=== PATIENT | female | born 1990 | race Caucasian/White ===

== ENCOUNTER 2016-07-05 09:31 | Emergency (ER) | payer OTHER ==
[2016-07-05 09:53] VITALS: TEMP 98.1
--- NOTE | 2016-07-05 10:25 | ED ---
Female Urogenital HPI - General Chief complaint: Urogenital Stated complaint: Abd.pain Time Seen by Provider: 07/05/16 10:13 Source: patient, RN notes reviewed Mode of arrival: ambulatory Limitations: no limitations - History of Present Illness Initial comments: 25-year-old female presents to the emergency department with a chief complaint of rash to the vaginal area. Patient states that ever since she had stitches after having her child she continues to have irritation to her perineum. Patient states over the last 2 months it comes and goes. Patient states now she 's noticed the patti area has returned she has pain at the end of urinating as well as it stings when she touches the area. Patient states she is also noticed some increased constipation over the last few days patient states she did take Colace which did help.. Patient states that she called her [facility] [employer] [facility] [employer] and they referred her here she was unable to be seen by them. Patient states she hasn't had any fever or chills with this. Patient denies any nausea or vomiting. Patient states that she was concerned due to her continued symptoms that she thought that she should be evaluated. Patient denies any recent fever, chills, shortness of breath, chest pain, back pain, abdominal pain, nausea vomiting, numbness or tingling, dysuria or hematuria, diarrhea, headaches or visual changes, or any other current symptoms.. Last Menstrual Period: 06/28/16 - Related Data Home Medications Medication Instructions Recorded Confirmed Albuterol Sulfate [Proair Hfa] 2 puff INHALATION RT-Q6H PRN 07/05/16 07/05/16 Docusate [Colace] 100 mg PO DAILY PRN 07/05/16 07/05/16 Methylphenidate HCl [Concerta] 36 mg PO DAILY 07/05/16 07/05/16 Multivitamins, Thera [Multivitamin] 1 tab PO DAILY 07/05/16 07/05/16 Norgestimate-Ethinyl Estradiol 1 tab PO DAILY 07/05/16 07/05/16 [Tri-Sprintec Tablet] Allergies Allergy/AdvReac Type Severity Reaction Status Date / Time No Known Allergies Allergy Verified 07/05/16 10:39 Review of Systems ROS Statement: Those systems with pertinent positive or pertinent negative responses have been documented in the HPI. ROS Other: All systems not noted in ROS Statement are negative. Past Medical History Past Medical History: No Reported History Additional Past Medical History / Comment(s): SVT, anxiety History of Any Multi-Drug Resistant Organisms: None Reported Past Surgical History: No Surgical Hx Reported Past Anesthesia/Blood Transfusion Reactions: No Reported Reaction Past Psychological History: No Psychological Hx Reported Smoking Status: Never smoker Past Alcohol Use History: None Reported Past Drug Use History: None Reported - Past Family History Father History Unknown: Yes Family Medical History: No Reported History General Exam - General Exam Comments Initial Comments: General: The patient is awake and alert, in no distress, and does not appear acutely ill. Eye: Pupils are equal, round. Ears, nose, mouth and throat: There are moist mucous membranes. Neck: The neck is supple, there is no tenderness . Cardiovascular: There is a regular rate and rhythm. No murmur, rub or gallop is appreciated. Respiratory: Lungs are clear to auscultation, respirations are non-labored, breath sounds are equal. No wheezes, stridor, rales, or rhonchi. Gastrointestinal: Soft, non-distended, non-tender abdomen without masses or organomegaly noted. There is no rebound or guarding present. No CVA tenderness. Bowel sounds are unremarkable. Female urogenital: Patient does appear to have an area of redness to it. He'll area that does appear to be cured he did there is some white discharge noted from the vaginal canal. Patient does appear to have tenderness in the left adnexa on bimanual exam. Back: There is no tenderness to palpation in the midline. There is no obvious deformity. No rashes noted. Musculoskeletal: Normal ROM, no tenderness, There is no pedal edema. There is no calf tenderness or swelling. Sensation intact. Pulses equal bilaterally 2+. Neurological: CN II-XII intact, There are no obvious motor or sensory deficits. Coordination appears grossly intact. Speech is normal. Skin: Skin is warm and dry and no rashes or lesions are noted. Psychiatric: Cooperative, appropriate mood & affect, normal judgment. Limitations: no limitations Course Vital Signs 07/05/16 07/05/16 07/05/16 09:49 10:53 12:55 Temperature 98.1 F Pulse Rate 122 H 94 92 Respiratory 20 18 18 Rate Blood Pressure 134/84 125/59 125/72 O2 Sat by Pulse 99 96 98 Oximetry Medical Decision Making - Medical Decision Making 25-year-old female presents for what appears to be peritoneal irritation. On bimanual exam patient does appear to have pain and left adnexa will do a transvaginal ultrasound. Patient's urinalysis does not show any signs of UTI. This ultrasound and x-rays are reviewed and negative. Patient's urinalysis does not show any signs of infection either. At this time we discussed that the patient should put a barrier type pain over the area of irritation in the vaginal canal. We discussed follow-up will be. I and return parameters. Patient stated that she understood and all this time patient will be discharged home. - Lab Data Lab Results 07/05/16 07/05/16 Range/Units 10:35 10:35 Urine Color Yellow Urine Appearance Clear (Clear) Urine pH 6.5 (5.0-8.0) Ur Specific [place] 1.017 (1.001-1.035) Urine Protein Negative (Negative) Urine Glucose (UA) Negative (Negative) Urine Ketones Negative (Negative) Urine Blood Negative (Negative) Urine Nitrate Negative (Negative) Urine Bilirubin Negative (Negative) Urine Urobilinogen <2.0 (<2.0) mg/dL Ur Leukocyte Esterase Small H (Negative) Urine WBC 1 (0-5) /hpf Ur Squamous Epith Cells 2 (0-4) /hpf Urine Bacteria Rare H (None) /hpf Urine Mucus Rare H (None) /hpf Urine HCG, Qual Not Detected (Not Detectd) - Radiology Data Radiology results: report reviewed, image reviewed Disposition Clinical Impression: Pelvic pain, Vaginal irritation, Constipation Disposition: HOME SELF-CARE Condition: Stable Instructions: Constipation (ED) Additional Instructions: Please use medication as discussed. Please follow up with family doctor if symptoms have not improved over the next two days. Please return to the emergency room if your symptoms increase or worsen or for any other concerns. Referrals: Marimar Anaya DO [Primary Care Provider] - 1-2 days Time of Disposition: 13:23
[2016-07-05 11:04] LABS: Appearance,Urine Clear (Clear); Bacteria,Urine Rare /hpf; Bilirubin,Urine Negative (Negative); Glucose,Urine (UA) Negative (Negative); Ketones,Urine Negative (Negative); Leukocyte Esterase,Urine Small (Negative); Mucus,Urine Rare /hpf; Nitrite,Urine Negative (Negative); PH, Urine 6.5 (5.0-8.0); Particle Count 4880; Protein,Urine Negative (Negative); Specific Gravity,Urine 1.017 (1.001-1.035); Squamous Epithelial Cell,Urine 2 /hpf (0-4); UA Billing (MACRO vs. MICRO) MICRO; Urobilinogen,Urine <2.0 mg/dL (<2.0); WBC,Urine 1 /hpf (0-5)
--- NOTE | 2016-07-05 11:40 | XR ---
EXAMINATION TYPE: XR abdomen 2V DATE OF EXAM: 07/05/2016 11:28 AM COMPARISON: NONE HISTORY: Pain TECHNIQUE: Single supine KUB image of the abdomen is obtained FINDINGS: Small bowel demonstrates no evidence for dilatation or air fluid levels. Gas and fecal material is seen in non-distended colon. No convincing evidence for pneumoperitoneum. No unusual calcifications. The lung bases are clear. The osseous structures are intact. IMPRESSION: 1. Overall nonobstructive bowel gas pattern.
--- NOTE | 2016-07-05 13:09 | US ---
EXAMINATION TYPE: US transvaginal DATE OF EXAM: 07/05/2016 12:20 PM COMPARISON: NONE CLINICAL HISTORY: LLQ tenderness TECHNIQUE: Transvaginal (TV) Date of LMP: 06/28/16 EXAM MEASUREMENTS: Uterus: 8.1 x 3.1 x 3.9 cm Endometrial Stripe: 0.3 cm Right Ovary: 3.0 x 2.0 x 1.8 cm Left Ovary: 2.3 x 1.5 x 1.5 cm Endovaginal pelvic ultrasound scanning performed. 1. Uterus: Anteverted 2. Endometrium: appears somewhat thicker in endocervical canal 3. Right Ovary: Changes associated cyst measuring approximately 1 x 1.8 cm 4. Left Ovary: wnl Spectral, color and waveform doppler imaging shows good arterial and venous flow within the ovaries ; there is no evidence for ovarian torsion. 5. Bilateral Adnexa: wnl 6. Posterior cul-de-sac: wnl Grayscale, color Doppler, spectral Doppler imaging performed of the ovaries. Vascular waveforms are n oted bilaterally. IMPRESSION: No significant abnormalities evident, follow-up as indicated.
[2016-07-05 13:31] VITALS: BP 129/75; PULSE 100; RESP 16
== END 2016-07-05 13:31 | disposition home or self-care (01) ==
LOC: EC 09:31
DX: R10.2 Pelvic and perineal pain (principal); N89.8 Other specified noninflammatory disorders of vagina; K59.00 Constipation, unspecified; Z79.899 Other long term (current) drug therapy; Z79.3 Long term (current) use of hormonal contraceptives
CPT/HCPCS: 74020; 76830; 81001; 81025; 87086; 93975; 99284

== ENCOUNTER 2020-06-17 10:42 | Outpatient (CLI) | payer OTHER ==
[2020-06-17 11:41] LABS: ALT 14 U/L (4-34); AST 23 U/L (14-36); African American GFR (CKD) >90 (>60 ml/min/1.73 sqM); Blood Urea Nitrogen 4 mg/dL (7-17); LDH 380 U/L (313-618); Non-African American GFR(CKD) >90 (>60 ml/min/1.73 sqM)
[2020-06-17 11:47] LABS: Creatinine,Urine Random 69.3 mg/dL; Protein/Creatinine Ratio,Urine 0.202
[2020-06-17 11:48] LABS: Appearance,Urine Clear (Clear); Color,Urine Yellow; Glucose,Urine (UA) Negative (Negative); Protein,Urine Negative (Negative); Specific Gravity,Urine 1.005 (1.001-1.035)
[2020-06-17 11:49] LABS: Anisocytosis Slight; Basophils % (A) 1 %; Bilirubin,Urine Negative (Negative); Blood,Urine Negative (Negative); Eosinophils # (A) 0.1 k/uL (0-0.7); Eosinophils % (A) 2 %; HCT 35.4 % (34.0-46.0); HGB 11.8 gm/dL (11.4-16.0); Hypochromasia Moderate; Ketones,Urine Negative (Negative); Leukocyte Esterase,Urine Small (Negative); Lymphocytes % (A) 12 %; MCH 28.9 pg (25.0-35.0); MCHC 33.3 g/dL (31.0-37.0); MCV 86.7 fL (80.0-100.0); Mean Platelet Volume 7.4; Monocytes # (A) 0.3 k/uL (0-1.0); Monocytes % (A) 4 %; Neutrophils # (A) 6.3 k/uL (1.3-7.7); Neutrophils % (A) 80 %; Nitrite,Urine Negative (Negative); Platelet Count 251 k/uL (150-450); Poikilocytosis Moderate; RBC 4.09 m/uL (3.80-5.40); RDW 16.5 % (11.5-15.5); Urobilinogen,Urine <2.0 mg/dL (<2.0); WBC 7.8 k/uL (3.8-10.6)
[2020-06-17 11:53] LABS: Bacteria,Urine Occasional /hpf; Mucus,Urine Rare /hpf; RBC,Urine 1 /hpf (0-5); Squamous Epithelial Cell,Urine 4 /hpf (0-4); WBC,Urine 1 /hpf (0-5)
[2020-06-17] MEDS ORDERED: LABETALOL 200 MG TAB PO STA (11:56)
[2020-06-17] MEDS ORDERED: BETAMET ACET-BETAMETH SOD PHOS 6 MG/ML MDV IM SCH (12:00)
[2020-06-17 12:06] VITALS: RESP 18; TEMP 97.5
[2020-06-17 13:39] VITALS: BP 141/91; PULSE 100
--- NOTE | 2020-06-30 18:42 | P.MSEPDOC ---
Presenting Problems - Arrival Data Date of Arrival on Unit: 06/17/20 Time of Arrival on Unit: 10:42 Mode of Transport: Ambulatory - Complaint OB-Reason for Admission/Chief Complaint: PIH Comment: pt came over to triage from office to get PIH workup Medical History - Information : 2 Para: 1 Term: 1 : 0 Abortions: Spontaneous or Elective: 0 Number of Living Children: 1 - Gestational Age Gestational Age by DANISHA (wks/days): 35 Weeks and 6 Days - History Comment: PIH Review of Systems - Review of Systems Constitutional: No problems Breast: No problems ENT: No problems Cardiovascular: No problems Respiratory: No problems Gastrointestinal: No problems Genitourinary: No problems Musculoskeletal: No problems Neurological: No problems Skin: No problems Vital Signs - Temperature Temperature: 97.5 F Temperature Source: Temporal Artery Scan - Pulse Right Brachial Pulse Rate: 100 Pulse Assessment Method: Automatic Cuff - Respirations Respiratory Rate: 18 Oxygen Delivery Method: Room Air - Blood Pressure Right Arm Blood Pressure: 141/91 Blood Pressure Mean: 107 Blood Pressure Source: Automatic Cuff Medical Screen Scoring (Pre) - Cervical Exam Dilation: Exam Deferred Effacement: Exam Deferred Membranes: Intact - Uterine Contractions Frequency: < 36 weeks = 6 Duration: N/A Intensity: N/A - Maternal Vital Signs Maternal Temperature: N/A Maternal Blood Pressure: Systolic >139 = 2 Signs of Preeclampsia: Visual Disturbance = 1 Maternal Respirations: N/A - Maternal Trauma Maternal Trauma: N/A - Assessment - Baby A Baseline FHR: 140 Heart Rate - NICHD Category: Category I (Normal) = 0 NST: Reactive Position: N/A Station: N/A - Total Score - Baby A Total Score - Baby A: 9 - Total Score - Baby B Total Score - Baby B: 9 - Total Score - Baby C Total Score - Baby C: 9 - Level of Risk - Baby A Level of Risk - Baby A: Medium (6-9) - Level of Risk - Baby B Level of Risk - Baby B: Medium (6-9) - Level of Risk - Baby C Level of Risk - Baby C: Medium (6-9) Physician Notification (Pre) - Physician Notified Physician Notified Date: 06/17/20 Physician Notified Time: 11:55 New Order Received: Yes - Notification Comment Comment: give 200 mg labatelol po and recheck bp in half hour, and betamethasone injection, will call with results Medical Screen Scoring (Post) - Cervical Exam Dilation: 1-3 cm = 1 Effacement: Exam Deferred Membranes: Intact - Uterine Contractions Frequency: < 36 weeks = 6 Duration: N/A Intensity: N/A - Maternal Vital Signs Maternal Temperature: N/A Maternal Blood Pressure: Systolic >139 = 2 Signs of Preeclampsia: N/A Maternal Respirations: N/A - Pain Assessment Pain Location and Character: Pelvic Pain Scale Used: Numeric (1 - 10) Pain Intensity: 7 Pain Description: *Acute, Pressure Pain Frequency: Intermittent Pain Duration: 30 Pain Duration Units: Minutes Pain Behavior: Vocalization Pain Aggravating Factors: Contractions - Maternal Trauma Maternal Trauma: N/A - Assessment - Baby A Heart Rate: 130 Heart Rate - NICHD Category: Category I (Normal) = 0 NST: Reactive Position: N/A Station: N/A - Total Score Total Score - Baby A: 9 Total Score - Baby B: 9 Total Score - Baby C: 9 - Post Treatment Level of Risk Post Treatment Level of Risk - Baby A: Medium (6-9) Post Treatment Level of Risk - Baby B: Medium (6-9) Post Treatment Level of Risk - Baby C: Medium (6-9) Physician Notification (Post) - Physician Notified Physician Notified Date: 06/17/20 Physician Notified Time: 13:05 Physician/Practitioner Notified:: Efraín Spoke With: Efraín New Order Received: Yes - Notification Comment Comment: Dr. Kenny notified of pt's recent bp's after labatelol po given, b etamethasone given IM, cervical exam is no different than in the office, pt is to return tomorrow for 2nd dose of betamathasone and bp check, she is being sent home with labatelol 200 mg bid Disposition - Disposition OB Disposition: Triage, Discharge to home, Written follow up instructions reviewed Discharge Date: 06/17/20 Discharge Time: 13:23 I agree with the RN Medical Screening Exam: Yes Case reviewed; plan agreed upon as documented in EMR&OBIX.: Yes Diagnosis: gestational hypertension
== END 2020-06-17 13:23 | disposition home or self-care (01) ==
LOC: FBPOP 10:42
PROVIDERS: ATTEND Obstetrics & Gynecology
DX: O13.3 Gestational [pregnancy-induced] hypertension without significant proteinuria, third trimester (principal); Z3A.35 35 weeks gestation of pregnancy
CPT/HCPCS: 59025; 96372; 82570; 84156; 82565; 83615; 84450; 84460; 84520; 84550; 85025; 81001; J0702; 99215

== ENCOUNTER 2020-06-17 20:00 | Outpatient (CLI) | payer OTHER ==
[2020-06-17 20:26] VITALS: BP 143/95; RESP 16
[2020-06-17 22:56] VITALS: PULSE 116; TEMP 97.2
--- NOTE | 2020-06-27 10:09 | P.MSEPDOC ---
Presenting Problems - Arrival Data Date of Arrival on Unit: 06/17/20 Time of Arrival on Unit: 20:00 Mode of Transport: Ambulatory - Complaint OB-Reason for Admission/Chief Complaint: Possible Onset of Labor Comment: Pt states MORA that did not resolve with tylenol, 12/22, pt took tylenol at. 1830. Pt states contractions have inceased since being in triage this am for PIH workup. Medical History - Information : 2 Para: 1 Term: 1 : 0 Abortions: Spontaneous or Elective: 0 Number of Living Children: 1 - Gestational Age Gestational Age by DANISHA (wks/days): 36 Weeks and 0 Days Review of Systems - Review of Systems Constitutional: No problems Breast: No problems ENT: No problems Cardiovascular: No problems Respiratory: No problems Gastrointestinal: No problems Genitourinary: No problems Musculoskeletal: No problems Neurological: No problems Skin: No problems Vital Signs - Temperature Temperature: 97.2 F Temperature Source: Temporal Artery Scan - Pulse Right Brachial Pulse Rate: 116 Pulse Assessment Method: Automatic Cuff - Respirations Respiratory Rate: 16 Oxygen Delivery Method: Room Air O2 Sat by Pulse Oximetry: 98 - Blood Pressure Right Arm Blood Pressure: 143/95 Blood Pressure Mean: 111 Blood Pressure Source: Automatic Cuff Medical Screen Scoring (Pre) - Cervical Exam Dilation: 1-3 cm = 1 Effacement: More than 50% = 2 Membranes: Intact - Uterine Contractions Frequency: < 36 weeks = 6 Duration: > 40 seconds = 2 Intensity: N/A - Maternal Vital Signs Maternal Temperature: N/A Maternal Blood Pressure: N/A Signs of Preeclampsia: N/A Maternal Respirations: N/A - Maternal Trauma Maternal Trauma: N/A - Assessment - Baby A Baseline FHR: 135 Heart Rate - NICHD Category: Category I (Normal) = 0 NST: Reactive - Total Score - Baby A Total Score - Baby A: 11 - Total Score - Baby B Total Score - Baby B: 11 - Total Score - Baby C Total Score - Baby C: 11 - Level of Risk - Baby A Level of Risk - Baby A: High (10+) - Level of Risk - Baby B Level of Risk - Baby B: High (10+) - Level of Risk - Baby C Level of Risk - Baby C: High (10+) Physician Notification (Pre) - Physician Notified Physician Notified Date: 06/17/20 Physician Notified Time: 22:22 New Order Received: Yes - Notification Comment Comment: Pt states MORA that did not resolve with tylenol, 8/10 pain, pt took tylenol at. 1830. Pt states contractions have increased since being in triage this am for PIH workup. Reported on pt s/s, triage visit earlier today, lab. results from today, vag exam, contractions and frh not reactive at this time. Orders to. watch pt for 1-2 hours and do serial bps every 30 minutes. 2221 Pt no cervical change after one hour, bps now 128/69, orders to d/c pt home and follow up tomorrow for second celestone shot. Disposition - Disposition OB Disposition: LDRP Suite, Discharge to home Discharge Date: 06/17/20 Discharge Time: 22:25 I agree with the RN Medical Screening Exam: Yes Physician's MSE Comment: I have neither seen nor examined this patient. Case reviewed; plan agreed upon as documented in EMR&OBIX.: Yes Diagnosis: RELATED CONDITIONS, UNSPECIFIED, THIRD TRIMESTER
== END 2020-06-17 22:25 | disposition home or self-care (01) ==
LOC: FBPOP 20:00
PROVIDERS: ATTEND Obstetrics & Gynecology
DX: O26.93 Pregnancy related conditions, unspecified, third trimester (principal); Z3A.36 36 weeks gestation of pregnancy
CPT/HCPCS: 59025; 99213

== ENCOUNTER 2020-06-19 01:25 | Outpatient (CLI) | payer OTHER ==
[2020-06-19 02:17] VITALS: BP 142/85; PULSE 96; RESP 16; TEMP 97.2
--- NOTE | 2020-06-24 07:59 | P.MSEPDOC ---
Presenting Problems - Arrival Data Date of Arrival on Unit: 06/19/20 Time of Arrival on Unit: 01:25 Mode of Transport: Ambulatory - Complaint OB-Reason for Admission/Chief Complaint: Rule Out SROM Comment: Pt states SROM aroun 2330, clear fluid Medical History - Information : 2 Para: 1 Term: 1 : 0 Abortions: Spontaneous or Elective: 0 Number of Living Children: 1 - Gestational Age Gestational Age by DANISHA (wks/days): 36 Weeks and 1 Days Review of Systems - Review of Systems Constitutional: No problems Breast: No problems ENT: No problems Cardiovascular: No problems Respiratory: No problems Gastrointestinal: No problems Genitourinary: No problems Musculoskeletal: No problems Neurological: No problems Skin: No problems Vital Signs - Temperature Temperature: 97.2 F Temperature Source: Temporal Artery Scan - Pulse Right Brachial Pulse Rate: 96 Pulse Assessment Method: Automatic Cuff - Respirations Respiratory Rate: 16 Oxygen Delivery Method: Room Air O2 Sat by Pulse Oximetry: 97 - Blood Pressure Right Arm Blood Pressure: 142/85 Blood Pressure Mean: 104 Blood Pressure Source: Automatic Cuff Medical Screen Scoring (Pre) - Cervical Exam Dilation: 1-3 cm = 1 Effacement: More than 50% = 2 Membranes: Intact - Uterine Contractions Frequency: > 5 minutes apart = 1 Duration: > 40 seconds = 2 Intensity: N/A - Maternal Vital Signs Maternal Temperature: N/A Signs of Preeclampsia: N/A Maternal Respirations: N/A - Maternal Trauma Maternal Trauma: N/A - Assessment - Baby A Baseline FHR: 135 Heart Rate - NICHD Category: Category I (Normal) = 0 - Total Score - Baby A Total Score - Baby A: 6 - Total Score - Baby B Total Score - Baby B: 6 - Total Score - Baby C Total Score - Baby C: 6 - Level of Risk - Baby A Level of Risk - Baby A: Medium (6-9) - Level of Risk - Baby B Level of Risk - Baby B: Medium (6-9) - Level of Risk - Baby C Level of Risk - Baby C: Medium (6-9) Physician Notification (Pre) - Physician Notified Physician Notified Date: 06/19/20 Physician Notified Time: 02:51 - Notification Comment Comment: Reported negative amnisure, no cervical change and serial bps last pressure 117/67, pt to follow up as planned wed. Disposition - Disposition OB Disposition: Physician follow up in office, Triage Discharge Date: 06/19/20 Discharge Time: 02:53 I agree with the RN Medical Screening Exam: Yes Case reviewed; plan agreed upon as documented in EMR&OBIX.: Yes Comments: Patient was neither seen nor examined by me Diagnosis: FALSE LABOR BEFORE 37 COMPLETED WEEKS OF GEST, THIRD TRI
== END 2020-06-19 02:55 | disposition home or self-care (01) ==
LOC: FBPOP 01:25
PROVIDERS: ATTEND Obstetrics & Gynecology
DX: O47.03 False labor before 37 completed weeks of gestation, third trimester (principal); Z3A.36 36 weeks gestation of pregnancy
CPT/HCPCS: 59025; 84112; G0463; 99213

== ENCOUNTER 2020-06-26 18:38 | Outpatient (CLI) | payer OTHER ==
[2020-06-26 20:41] VITALS: RESP 16; TEMP 96.8
[2020-06-26 20:45] VITALS: BP 133/82; PULSE 80
--- NOTE | 2020-06-27 09:58 | P.MSEPDOC ---
Presenting Problems - Arrival Data Date of Arrival on Unit: 06/26/20 Time of Arrival on Unit: 18:39 Mode of Transport: Ambulatory - Complaint OB-Reason for Admission/Chief Complaint: Other Comment: large hemorrhoid causing pain. Medical History - Information : 2 Para: 1 Term: 1 : 0 Abortions: Spontaneous or Elective: 0 Number of Living Children: 1 - Gestational Age Gestational Age by DANISHA (wks/days): 37 Weeks and 1 Days - History Comment: gestational HTN Review of Systems - Review of Systems Constitutional: No problems Breast: No problems ENT: No problems Cardiovascular: No problems Respiratory: No problems Gastrointestinal: No problems Genitourinary: No problems Musculoskeletal: No problems Neurological: No problems Skin: No problems Comment: large hemorrhoid Vital Signs - Temperature Temperature: 96.8 F Temperature Source: Temporal Artery Scan - Pulse Right Sitting Pulse Rate: 80 - Respirations Respiratory Rate: 16 Oxygen Delivery Method: Room Air - Blood Pressure Right Arm Sitting Blood Pressure: 133/82 Blood Pressure Mean: 99 Blood Pressure Source: Automatic Cuff Medical Screen Scoring (Pre) - Cervical Exam Membranes: Intact - Uterine Contractions Frequency: N/A Duration: N/A - Maternal Vital Signs Maternal Temperature: N/A Maternal Blood Pressure: N/A Signs of Preeclampsia: N/A Maternal Respirations: N/A - Maternal Trauma Maternal Trauma: N/A - Assessment - Baby A Baseline FHR: 135 Heart Rate - NICHD Category: Category I (Normal) = 0 NST: Reactive - Total Score - Baby A Total Score - Baby A: 0 - Total Score - Baby B Total Score - Baby B: 0 - Total Score - Baby C Total Score - Baby C: 0 - Level of Risk - Baby A Level of Risk - Baby A: Low (0-5) - Level of Risk - Baby B Level of Risk - Baby B: Low (0-5) - Level of Risk - Baby C Level of Risk - Baby C: Low (0-5) Physician Notification (Pre) - Physician Notified Physician Notified Date: 06/26/20 Physician Notified Time: 19:21 New Order Received: Yes - Notification Comment Comment: pt may be d/c to ER once the NST is reactive. Medical Screen Scoring (Post) - Cervical Exam Dilation: Exam Deferred - Uterine Contractions Frequency: N/A - Maternal Vital Signs Maternal Temperature: N/A Maternal Respirations: N/A - Maternal Trauma Maternal Trauma: N/A - Assessment - Baby A Heart Rate: 125 - Total Score Total Score - Baby A: 0 Total Score - Baby B: 0 Total Score - Baby C: 0 - Post Treatment Level of Risk Post Treatment Level of Risk - Baby A: Low (0-5) Post Treatment Level of Risk - Baby B: Low (0-5) Post Treatment Level of Risk - Baby C: Low (0-5) Physician Notification (Post) - Physician Notified Physician Notified Date: 06/26/20 Physician Notified Time: 19:48 Physician/Practitioner Notified:: juan New Order Received: Yes - Notification Comment Comment: pt may be d/c Disposition - Disposition OB Disposition: Discharge to home, Written follow up instructions reviewed Discharge Date: 06/26/20 Discharge Time: 19:53 I agree with the RN Medical Screening Exam: Yes Physician's MSE Comment: I have neither seen nor examined this patient. Case reviewed; plan agreed upon as documented in EMR&OBIX.: Yes Diagnosis: RELATED CONDITIONS, UNSPECIFIED, THIRD TRIMESTER
== END 2020-06-26 19:53 | disposition home or self-care (01) ==
LOC: FBPOP 18:38
PROVIDERS: ATTEND Obstetrics & Gynecology
DX: O26.93 Pregnancy related conditions, unspecified, third trimester (principal); Z3A.37 37 weeks gestation of pregnancy
CPT/HCPCS: 59025; G0463; 99213

== ENCOUNTER 2020-06-26 20:06 | Emergency (ER) | payer OTHER ==
[2020-06-26 20:12] VITALS: TEMP 98.5
[2020-06-26] MEDS ORDERED: BUPIVACAINE (PF) 0.75% 10 ML VIAL SQ STA (20:34)
--- NOTE | 2020-06-26 20:37 | ED ---
General Adult HPI - General Chief complaint: Recheck/Abnormal Lab/Rx Stated complaint: Hemorrhoid, 37 wks preg Time Seen by Provider: 06/26/20 20:22 Source: patient Mode of arrival: ambulatory Limitations: no limitations - History of Present Illness Initial comments: Dictation was produced using [employer] dictation software. please excuse any grammatical, word or spelling errors. This patient was cared for during a federal and state declared state of emergency secondary to Covid 19 Chief Complaint: 29-year-old female with 37 weeks' presents with external hemorrhoid History of Present Illness: Patient is 21-year-old female she has less than 24 hours of rectal pain. Patient states she has history of external hemorrhoids. She noticed that her pain began severely today. She tried to go to urgent cares to have excision of external hemorrhoids however she is refused. She went to labor and delivery where she was diverted to the emergency department for further care. Patient has history of external hemorrhoids. No other complaints at this time. The ROS documented in this emergency department record has been reviewed and confirmed by me. Those systems with pertinent positive or negative responses have been documented in the HPI. All other systems are other negative and/or noncontributory. PHYSICAL EXAM: General Impression: Alert and oriented x3, not in acute distress HEENT: Normocephalic atraumatic, extra-ocular movements intact, pupils equal and reactive to light bilaterally, mucous membranes moist. Cardiovascular: Heart regular rate and rhythm Chest: Able to complete full sentences, no retractions, no tachypnea Abdomen: abdomen soft, non-tender, non-distended, no organomegaly Musculoskeletal: Pulses present and equal in all extremities, no peripheral edema Motor: no focal deficits noted Neurological: CN II-XII grossly intact, no focal motor or sensory deficits noted Skin: Intact with no visualized rashes Psych: Normal affect and mood Rectal exam: There are 2 external hemorrhoids one smaller measuring approximately 0.5 x 0.5 cm with another hemorrhoid that is larger measuring 1 x 1 cm. ED course: 29-year-old female presents with symptomatic external hemorrhoid. She is 37 weeks . Vital signs upon arrival are within acceptable limits. Given the patient's I will not perform excision. Patient is agreeable for perianal block for pain relief and conservative topical treatment. Perianal block was performed providing relief. Patient given topical lidocaine to put on the hemorrhoid. She is given referral to general surgery. - Related Data Home Medications Medication Instructions Recorded Confirmed Multivitamins, Thera [Multivitamin] 1 tab PO DAILY 07/05/16 06/19/20 Acetaminophen [Tylenol] 1,000 mg PO Q4-6H PRN 06/17/20 06/19/20 Labetalol [Trandate] 200 mg PO BID 06/17/20 06/19/20 Acyclovir 400 mg PO ONCE 06/19/20 06/19/20 Allergies Allergy/AdvReac Type Severity Reaction Status Date / Time No Known Allergies Allergy Verified 06/26/20 20:12 Review of Systems ROS Statement: Those systems with pertinent positive or pertinent negative responses have been documented in the HPI. ROS Other: All systems not noted in ROS Statement are negative. Past Medical History Past Medical History: No Reported History Additional Past Medical History / Comment(s): SVT, anxiety History of Any Multi-Drug Resistant Organisms: None Reported Past Surgical History: No Surgical Hx Reported Past Anesthesia/Blood Transfusion Reactions: No Reported Reaction Past Psychological History: No Psychological Hx Reported Smoking Status: Never smoker Past Alcohol Use History: None Reported Past Drug Use History: None Reported - Past Family History Father History Unknown: Yes Family Medical History: No Reported History General Exam Limitations: no limitations Course Vital Signs 06/26/20 06/26/20 20:07 21:10 Temperature 98.5 F Pulse Rate 88 78 Respiratory 20 18 Rate Blood Pressure 155/99 137/87 O2 Sat by Pulse 100 99 Oximetry Disposition Clinical Impression: External hemorrhoid Disposition: HOME SELF-CARE Condition: Good Instructions (If sedation given, give patient instructions): Hemorrhoids (ED) Is patient prescribed a controlled substance at d/c from ED?: No Referrals: Marimar Anaya DO [Primary Care Provider] - 1-2 days Jac Vaughan MD [STAFF PHYSICIAN] - 1-2 days Time of Disposition: 21:19
[2020-06-26] MEDS ORDERED: LIDOCAINE VISCOUS 2% 15 ML CUP MUCOUS MEM ONE (20:46)
[2020-06-26] MEDS ORDERED: LIDOCAINE 2% GEL 30 ML TUBE TOPICAL ONE (20:56)
[2020-06-26] MEDS: LIDOCAINE 1%-EPI 1:100,000 20 ML VIAL SQ STA (20:58)
[2020-06-26 21:18] VITALS: BP 137/87; PULSE 78; RESP 18
--- NOTE | 2020-06-26 21:26 | ED ---
Disposition Clinical Impression: External hemorrhoid Disposition: HOME SELF-CARE Condition: Good Instructions (If sedation given, give patient instructions): Hemorrhoids (ED) Is patient prescribed a controlled substance at d/c from ED?: No Referrals: Marimar Anaya DO [Primary Care Provider] - 1-2 days Jac Vaughan MD [STAFF PHYSICIAN] - 1-2 days Time of Disposition: 21:25 Procedures - [place] Protocol (Time Out) Procedure Performed:: itzel anal block Performing Provider: Avtar Salgado Nurse: Susan Montes Patient Identification (2 identifiers required): Verbal, Arm Band, Name, Birthdate Patient/Legal Caul Dresser has Confirmed: Identity, Site, Procedure, Consent Site: itzel anal - Nerve Block Consent Obtained: verbal consent, written consent Local Anesthetic Used: LIDOCAINE 1% with EPI Amount of anesthesia used: 6 Nerve Blocks: other (perianal) Procedure Successful: Yes Complications: none Patient Tolerated Procedure: well
== END 2020-06-26 21:29 | disposition home or self-care (01) ==
LOC: EC 20:06
DX: O22.43 Hemorrhoids in pregnancy, third trimester (principal); Z79.899 Other long term (current) drug therapy; Z3A.37 37 weeks gestation of pregnancy
CPT/HCPCS: 99282

== ENCOUNTER 2020-06-30 13:35 | Inpatient (IN) | payer OTHER ==
[2020-06-30] MEDS ORDERED: TERBUTALINE 1 MG/ML VIAL SQ PRN (14:06)
[2020-06-30] MEDS ORDERED: CARBOPROST TROMETHAMINE 250 MCG/ML 1 ML AMP IM PRN (14:06)
[2020-06-30] MEDS ORDERED: METHYLERGONOVINE 0.2 MG/ML 1 ML AMP IM PRN (14:06)
[2020-06-30] MEDS ORDERED: OXYTOCIN 10 UNIT/ML 1 ML VIAL IM PRN (14:06)
[2020-06-30] MEDS ORDERED: LIDOCAINE 0.5% (PF) 5 MG/ML (50 ML SDV) SQ PRN (14:06)
[2020-06-30] MEDS ORDERED: PENICILLIN G POTASSIUM 5,000,000 UNIT in DEXTROSE 5% IN WATER 100 ML IVPB STA ×2 (14:14)
[2020-06-30] MEDS ORDERED: OXYTOCIN 30 UNITS/500 ML NS 30 UNIT in SALINE 1 500ML.BAG IV SCH ×2 (14:15→22:15)
[2020-06-30] MEDS ORDERED: LACTATED RINGERS 1,000 ML IV SCH (14:15)
[2020-06-30] MEDS: LACTATED RINGERS 1,000 ML IV SCH ×2 (14:21→18:00)
[2020-06-30 14:34] LABS: Basophils % (A) 0 %; Eosinophils # (A) 0.2 k/uL (0-0.7); Eosinophils % (A) 2 %; HGB 12.3 gm/dL (11.4-16.0); Lymphocytes # (A) 1.2 k/uL (1.0-4.8); Lymphocytes % (A) 12 %; MCH 28.1 pg (25.0-35.0); MCHC 33.2 g/dL (31.0-37.0); MCV 84.8 fL (80.0-100.0); Mean Platelet Volume 7.5; Monocytes # (A) 0.6 k/uL (0-1.0); Monocytes % (A) 6 %; Neutrophils % (A) 80 %; Platelet Count 308 k/uL (150-450); RBC 4.36 m/uL (3.80-5.40); WBC 10.1 k/uL (3.8-10.6)
[2020-06-30 14:43] LABS: ALT 14 U/L (4-34); AST 24 U/L (14-36); African American GFR (CKD) >90 (>60 ml/min/1.73 sqM); Blood Urea Nitrogen 7 mg/dL (7-17); LDH 476 U/L (313-618); Non-African American GFR(CKD) >90 (>60 ml/min/1.73 sqM); Uric Acid 4.7 mg/dL (3.7-7.4)
[2020-06-30 14:51] LABS: INR 0.9 (<1.2); Prothrombin Time 9.4 sec (9.0-12.0)
[2020-06-30 14:55] LABS: Partial Thromboplastin Time 20.8 sec (22.0-30.0)
--- NOTE | 2020-06-30 15:56 | P.HPOB ---
History of Present Illness H&P Date: 06/30/20 Chief Complaint: Gestational hypertension at 37-6/7 weeks' gestation This is a 29-year-old 2 para 1001 woman with an estimated due date of 07/16/2020. She presented for routine visit and was found to have significantly elevated blood pressures in the 160s over 100s in the office setting. She is being treated with labetalol 200 mg 3 times daily for gesta tional hypertension. She is complaining of mild headache. Denies visual changes, abdominal pain, vaginal bleeding or leakage of fluids. She is complaining of significant pain from a thrombosed hemorrhoid that has been bothering her for the last several days. The patient began having elevated blood pressures at 35 weeks gestation. She was started on labetalol twice a day and had on rule out preeclampsia evaluation which was negative. She was given steroids and followed closely in the outpatient setting. She has a history of HSV with no outbreaks in . She denies prodromal symptoms. She has been on Valtrex suppression since 36 weeks gestation. Upon initial presentation in labor and delivery triage her blood pressure is 163/113. She is therefore admitted for induction of labor secondary to significant hypertension. Obstetric history is significant for normal spontaneous vaginal delivery at term in 2016 of a liveborn male infant weighing 7 lbs. 11 oz. Laboratory data: Blood type O+, antibody screen negative, rubella immune, VDRL nonreactive, hepatitis B surface antigen negative, HIV negative, gonorrhea and clinic cultures negative, group B strep positive, GTT within normal limits. Review of Systems All systems: negative Past Medical History Past Medical History: No Reported History Additional Past Medical History / Comment(s): SVT, anxiety Last Myocardial Infarction Date:: 2015 History of Any Multi-Drug Resistant Organisms: None Reported Past Surgical History: No Surgical Hx Reported Past Anesthesia/Blood Transfusion Reactions: No Reported Reaction Past Psychological History: No Psychological Hx Reported Smoking Status: Never smoker Past Alcohol Use History: None Reported Past Drug Use History: None Reported - Past Family History Father History Unknown: Yes Family Medical History: No Reported History Medications and Allergies Home Medications Medication Instructions Recorded Confirmed Type Multivitamins, Thera [Multivitamin] 1 tab PO DAILY 07/05/16 06/30/20 History Acetaminophen [Tylenol] 1,000 mg PO Q4-6H PRN 06/17/20 06/30/20 History Labetalol [Trandate] 200 mg PO BID 06/17/20 06/30/20 History Acyclovir 400 mg PO ONCE 06/19/20 06/30/20 History Allergies Allergy/AdvReac Type Severity Reaction Status Date / Time No Known Allergies Allergy Verified 06/30/20 14:03 Exam Intake and Output 06/30/20 06/30/20 06/30/20 06:59 14:59 22:59 Other: Weight 88.904 kg This is a visibly gravid female in no acute distress. HEENT exam is unremarkable. Lungs are clear to auscultation bilaterally and the heart is of regular rate and rhythm. The abdomen is gravid, soft and nontender with no right upper quadrant pain. She has 1+ bilateral lower extremity edema, 2+ deep tendon reflexes and no clonus. On pelvic examination the cervix is 2-3 cm dilated, 80% effaced and the vertex in the -3 station. Artificial rupture of membranes is undertaken and clear fluid is noted. heart tones are currently category 1. She is nohemi every 2-4 minutes spontaneously. Be strep prophylactic antibiotics have been initiated. Results Result Diagrams: 06/30/20 14:05 06/30/20 14:05 Abnormal Lab Results - Last 24 Hours (Table) 06/30/20 06/30/20 06/30/20 Range/Units 14:05 14:05 14:05 Neutrophils # 8.0 H (1.3-7.7) k/uL APTT 20.8 L (22.0-30.0) sec Fibrinogen 519 H (200-500) mg/dL Creatinine 0.47 L (0.52-1.04) mg/dL Assessment and Plan (1) Gestational hypertension Current Visit: Yes Status: Acute Code(s): O13.9 - GESTATIONAL HTN W/O SIGNIFICANT PROTEINURIA, UNSP TRIMESTER SNOMED Code(s): 251935776 (2) GBS (group B Streptococcus carrier), +RV culture, currently Current Visit: Yes Status: Acute Code(s): O99.820 - STREPTOCOCCUS B CARRIER STATE COMPLICATING SNOMED Code(s): 9346870099531 Plan: This is a 2 para 1001 woman with an estimated due date of 07/16/2020 who is admitted at 37-6/7 weeks' gestation with worsening gestational hypertension despite 3 times a day labetalol in the outpatient setting. She is previously received steroids at 35 weeks. She is admitted for induction of labor. Group B strep prophylactic antibiotics have been initiated and status is currently reassuring by external monitoring. Artificial rupture of membranes and Pitocin induction of labor per protocol. Current blood pressure is 136/96. Close blood pressure monitoring and IV antihypertensives as indicated. She may receive an epidural anesthetic upon request which will likely improve her blood pressures as well.
[2020-06-30] MEDS ORDERED: SODIUM CHLORIDE 0.9% 100 ML BAG ONE (18:13)
[2020-06-30] MEDS ORDERED: ROPIVACAINE 5MG/ML 20ML VIAL ONE (18:13)
[2020-06-30] MEDS ORDERED: fentaNYL (PF) 50 MCG/ML 5 ML AMP ONE (18:13)
[2020-06-30 18:31] LABS: Creatinine,Urine Random 87.7 mg/dL; Protein/Creatinine Ratio,Urine 0.194
[2020-06-30] MEDS: PENICILLIN G POTASSIUM 2,500,000 UNIT in DEXTROSE 5% IN WATER 100 ML IVPB SCH ×2 (19:07)
[2020-06-30] MEDS ORDERED: ACETAMINOPHEN TAB 325 MG TAB PO PRN (22:02)
[2020-06-30] MEDS ORDERED: ZOLPIDEM 5 MG TAB PO PRN (22:02)
[2020-06-30] MEDS ORDERED: LANOLIN CREAM 5 GM TUBE TOPICAL PRN (22:02)
[2020-06-30] MEDS ORDERED: SIMETHICONE 80 MG CHEWABLE PO PRN (22:02)
[2020-06-30] MEDS ORDERED: diphenhydrAMINE 50 MG/ML 1 ML VIAL IVP PRN ×2 (22:02)
[2020-06-30] MEDS ORDERED: HYDROCORTISONE 2.5% RECTAL CREAM 30 GM TUBE RECTAL PRN (22:02)
[2020-06-30] MEDS ORDERED: diphenhydrAMINE 25 MG CAP PO PRN (22:02)
[2020-06-30] MEDS ORDERED: diphenhydrAMINE 50 MG CAP PO PRN (22:02)
[2020-06-30] MEDS ORDERED: BENZOCAINE/MENTHOL SPRAY 1 GM/SPRAY AEROSOL TOPICAL PRN (22:02)
--- NOTE | 2020-06-30 22:02 | P.PROBDLV ---
Vaginal Delivery Note - . Vaginal Delivery Note: Findings: Female in the right occiput anterior position with Apgars of 9 at 1 minute and 9 at 5 minutes weighing 7 lbs. 3 oz., 3270 g. Nuchal cord 1. Intact, three-vessel cord placenta with extensive calcifications and thin cord. Second-degree perineal laceration. Delivery summary: This is a 29-year-old 2 para 1001 woman who presents at 37-5/7 weeks gestation with worsening hypertension in the outpatient setting despite on 3 times daily oral antihypertensives. In the office setting station blood pressure pressures in the 150s to 160s over 100s. Initial blood pressure upon evaluation in labor and delivery triage was 163/113. PIH labs within normal limits. She previously received steroids at 35 weeks gestation when her blood pressures initially became elevated. Decision was made to proceed towards delivery in light of favorable cervix, worsening blood pressures and gestational age. She underwent a Pitocin induction of labor with artificial rupture of membranes. She received group B strep prophylactic antibiotics per protocol. She eventually received an epidural anesthetic and had an unremarkable progression to complete cervical dilation. Her blood pressures mainly ranged in the 130s over 80s during her labor. heart tones are category 1 during the majority of the first stage of her labor. When she reached complete cervical dilation she had strong urge to push. She was repositioned, prepped and draped in the dorsal modified [place] position. With maternal effort she did push the 's vertex to . With additional maternal effort the head delivered from the right occiput anterior position. A nuchal cord 1 was reduced. The anterior followed by the posterior shoulders were delivered then without difficulty. The rest the infant was delivered onto the field. The nose and mouth were bulb suctioned. The infant was placed on the maternal abdomen. The cord was clamped and cut. Apgars were 9 at 1 minute and 9 at 5 minutes and weight was 7 lbs. 3 oz. The perineum was inspected and a second-degree laceration was noted. This was infused with lidocaine and repaired with 3-0 Vicryl suture in the usual fashion. She does have a large external hemorrhoid that was easily compressible in reduced. No evidence of thrombosis. Following the repair an intact, three-vessel cord placenta was expressed. The uterus was massaged and Pitocin was administered intravenously. The uterus was firm at the level of the umbilicus. The rest of the vagina was inspected and no further lacerations were noted. The placenta was inspected as noted to be extensively calcified, more than expected for gestational age. It was sent to pathology for further evaluation. EBL was approximately 150 mL's. Both mother and were doing well post delivery in the room.
[2020-07-01] MEDS: IBUPROFEN 600 MG TAB PO PRN ×3 (00:34→21:02)
--- NOTE | 2020-07-01 06:31 | P.PNOBGVD ---
Subjective - Subjective Principal diagnosis: -induced hypertension Patient reports: Reports appetite normal, Reports voiding normally, Reports pain well controlled, Reports ambulating normally : doing well Objective - Latest Vital Signs Latest vital signs: Vital Signs Temp Pulse Resp BP Pulse Ox 07/01/20 03:53 98.2 F 105 H 20 126/83 06/30/20 23:56 97.6 F 120 H 17 135/79 06/30/20 23:26 130 H 18 157/74 06/30/20 22:56 98.4 F 117 H 17 138/67 06/30/20 22:41 121 H 18 132/72 06/30/20 22:26 131 H 17 158/80 06/30/20 22:11 131 H 18 153/87 06/30/20 21:56 99.0 F 120 H 18 148/84 06/30/20 14:30 98.1 F 113 H 18 169/113 98 Intake and Output 06/30/20 06/30/20 07/01/20 14:59 22:59 06:59 Intake Total 2000 Output Total 200 Balance 1800 Intake: IV 2000 Invasive Line 1 1000 Output: Urine 200 Other: # Voids 1 Weight 88.904 kg - Exam Extremities: Present: normal Abdomen: Present: normal appearance Uterus: Present: normal - Labs Labs: Abnormal Lab Results - Last 24 Hours (Table) 06/30/20 06/30/20 06/30/20 Range/Units 14:05 14:05 14:05 Neutrophils # 8.0 H (1.3-7.7) k/uL APTT 20.8 L (22.0-30.0) sec Fibrinogen 519 H (200-500) mg/dL Creatinine 0.47 L (0.52-1.04) mg/dL Assessment and Plan (1) Gestational hypertension Narrative/Plan: Blood pressure stable to the night. Resume oral labetalol today. Current Visit: Yes Status: Acute Code(s): O13.9 - GESTATIONAL HTN W/O SIGNIFICANT PROTEINURIA, UNSP TRIMESTER SNOMED Code(s): 593802778 (2) GBS (group B Streptococcus carrier), +RV culture, currently Current Visit: Yes Status: Acute Code(s): O99.820 - STREPTOCOCCUS B CARRIER STATE COMPLICATING SNOMED Code(s): 2628191512851 (3) Normal vaginal delivery Narrative/Plan: day #1/2. Routine care. Current Visit: No Status: Acute Code(s): CMU1301 - SNOMED Code(s): 239717825 (4) Perineal laceration with delivery, second degree Current Visit: Yes Status: Acute Code(s): O70.1 - SECOND DEGREE PERINEAL LACERATION DURING DELIVERY SNOMED Code(s): 5208688 (5) Nuchal cord Current Visit: Yes Status: Acute Code(s): O69.81X0 - LABOR AND DEL COMP BY CORD AROUND NECK, W/O COMPRSN, UNSP SNOMED Code(s): 520216448
[2020-07-01 06:48] LABS: Basophils % (A) 0 %; Eosinophils # (A) 0.1 k/uL (0-0.7); Eosinophils % (A) 1 %; HCT 32.4 % (34.0-46.0); HGB 10.4 gm/dL (11.4-16.0); Lymphocytes # (A) 1.3 k/uL (1.0-4.8); Lymphocytes % (A) 12 %; MCH 27.5 pg (25.0-35.0); MCV 85.8 fL (80.0-100.0); Mean Platelet Volume 7.1; Monocytes # (A) 0.6 k/uL (0-1.0); Monocytes % (A) 6 %; Neutrophils # (A) 8.4 k/uL (1.3-7.7); Neutrophils % (A) 79 %; Platelet Count 261 k/uL (150-450); RBC 3.77 m/uL (3.80-5.40); RDW 15.3 % (11.5-15.5); WBC 10.7 k/uL (3.8-10.6)
[2020-07-01] MEDS: SENNOSIDES-DOCUSATE SODIUM 1 EACH TAB PO SCH ×2 (09:03→21:02)
[2020-07-01] MEDS: LABETALOL 200 MG TAB PO SCH ×2 (19:43→21:02)
[2020-07-01] MEDS: PENICILLIN G POTASSIUM 2,500,000 UNIT in DEXTROSE 5% IN WATER 100 ML IVPB SCH ×2 (19:44)
[2020-07-02] MEDS: IBUPROFEN 600 MG TAB PO PRN (06:52)
[2020-07-02] MEDS: SENNOSIDES-DOCUSATE SODIUM 1 EACH TAB PO SCH (07:40)
[2020-07-02 08:31] VITALS: BP 119/73; PULSE 96; RESP 17; TEMP 97.9
--- NOTE | 2020-07-02 08:38 | P.DS ---
Providers Date of admission: 06/30/20 13:46 Expected date of discharge: 07/02/20 Attending physician: Karen Kenny Primary care physician: Stated None - Discharge Diagnosis(es) (1) Gestational hypertension Current Visit: Yes Status: Acute (2) GBS (group B Streptococcus carrier), +RV culture, currently Current Visit: Yes Status: Acute (3) Normal vaginal delivery Current Visit: No Status: Acute (4) Perineal laceration with delivery, second degree Current Visit: Yes Status: Acute (5) Nuchal cord Current Visit: Yes Status: Acute Hospital Course: This is a 29-year-old 2 now para 2 woman who is admitted at 38-5/7 weeks gestation with worsening gestational hypertension. She been maintained in the outpatient setting on on labetalol 200 mg 3 times a day however despite that her blood pressures continued to increase. An the day prior to admission her blood pressures were in the 150s to 170s over 100s. Upon initial presentation to labor and delivery triage her blood pressure was 163/113. She previously received steroids for lung maturity at 35 weeks and her blood pressures initially when up. Preeclampsia workup has consistently been negative. She was admitted for induction of labor with artificial rupture membranes and Pitocin augmentation. She received group B strep prophylactic antibiotics. She received an epidural anesthetic. She went on to deliver a liveborn female over second-degree perineal laceration with nuchal cord 1. The placenta appeared significantly calcified. Please see delivery summary for details. The patient's course was unremarkable. On post day 1 blood pressures on within the 150s over 80s and her labetalol was reinitiated. By day #2 her blood pressures were in the 1 teens over 70s. She was feeling very well with minimal lochia and good pain control. She denied headache, visual changes, worsening swelling or other concerns. She was therefore discharged home on day #2 with instructions to return to the office in 1 week for blood pressure check. She went to continue her labetalol 200 mg twice a day at home until that time. Patient Condition at Discharge: Good Plan - Discharge Summary New Discharge Prescriptions: No Action Multivitamins, Thera [Multivitamin] 1 tab PO DAILY Acetaminophen [Tylenol] 1,000 mg PO Q4-6H PRN PRN Reason: Pain Labetalol [Trandate] 200 mg PO BID Acyclovir 400 mg PO ONCE Discharge Medication List Multivitamins, Thera [Multivitamin] 1 tab PO DAILY 07/05/16 [History] Acetaminophen [Tylenol] 1,000 mg PO Q4-6H PRN 06/17/20 [History] Labetalol [Trandate] 200 mg PO BID 06/17/20 [History] Acyclovir 400 mg PO ONCE 06/19/20 [History] Follow up Appointment(s)/Referral(s): Karen Kenny MD [STAFF PHYSICIAN] - 1 Week Activity/Diet/Wound Care/Special Instructions: Follow-up in the office in 1 week for blood pressure check and 6 weeks . Call with any concerning signs or symptoms including severe headaches, visual changes, heavy vaginal bleeding, severe abdominal pain, fever greater than 101, swelling or redness of the lower extremities, foul vaginal discharge, or signs of depression. Nothing in the vagina for 6 weeks after delivery, specifically no intercourse. Discharge Disposition: HOME SELF-CARE
[2020-07-02] MEDS: LABETALOL 200 MG TAB PO SCH (11:44)
== END 2020-07-02 11:15 | disposition home or self-care (01) | DRG 807 ==
LOC: 4FBP 13:46
PROVIDERS: ADMIT Obstetrics & Gynecology; ATTEND Obstetrics & Gynecology
PROC: 10907ZC Drainage of Amniotic Fluid, Therapeutic from Products of Conception, Via Natural or Artificial Opening (ICD-10-PCS; principal; 2020-06-30)
PROC: 10E0XZZ Delivery of Products of Conception, External Approach (ICD-10-PCS; principal; 2020-06-30)
PROC: 3E0R3BZ Introduction of Anesthetic Agent into Spinal Canal, Percutaneous Approach (ICD-10-PCS; principal; 2020-06-30)
PROC: 3E033VJ Introduction of Other Hormone into Peripheral Vein, Percutaneous Approach (ICD-10-PCS; principal; 2020-06-30)
PROC: 00HU33Z Insertion of Infusion Device into Spinal Canal, Percutaneous Approach (ICD-10-PCS; principal; 2020-06-30)
PROC: 0KQM0ZZ Repair Perineum Muscle, Open Approach (ICD-10-PCS; principal; 2020-06-30)
DX: O13.4 Gestational [pregnancy-induced] hypertension without significant proteinuria, complicating childbirth (principal); Z37.0 Single live birth; O22.43 Hemorrhoids in pregnancy, third trimester; O69.81X0 Labor and delivery complicated by cord around neck, without compression, not applicable or unspecified; O99.824 Streptococcus B carrier state complicating childbirth; O70.1 Second degree perineal laceration during delivery; Z3A.37 37 weeks gestation of pregnancy; Z79.899 Other long term (current) drug therapy; Z86.79 Personal history of other diseases of the circulatory system; Z86.59 Personal history of other mental and behavioral disorders
CPT/HCPCS: 82565; 82570; 83615; 84156; 84450; 84460; 84520; 84550; 85025; 85384; 85610; 85730; 86850; 86900; 86901; 88307